=== PATIENT | female | born 1945 | race Hispanic/Latino ===

== ENCOUNTER 2017-03-02 08:47 | Emergency (ER) | payer MEDICARE ==
[2017-03-02] MEDS ORDERED: NACL 0.9% 500 ML 500 ML IV ONE (08:49)
--- NOTE | 2017-03-02 09:13 | XRay Report ---
PORTABLE CHEST INDICATION: Possible sepsis. COMPARISON: None similar. FINDINGS: Portable, frontal chest radiograph demonstrates normal cardiomediastinal silhouette. Subtle nonspecific 4.5 cm haziness overlies the left mid to lower lung peripherally. Clear remainder lungs without pleural effusions or CHF. Aortic knob calcifications. EKG leads. Demineralized bones with few degenerative changes and lower thoracic-lumbar incompletely imaged Fink rods. CONCLUSION: 1. Subtle left mid to lower lung hazy opacity/pneumonia, as described. PA and lateral chest radiographs and/or chest CT with contrast may be considered for further evaluation, as appropriate. 2. Other findings, as above. Thank you for the opportunity to participate in this patient's care.
[2017-03-02] MEDS ORDERED: TYLENOL PR ONE ×2 (09:14)
[2017-03-02 09:24] LABS: Hematocrit 50.6 % (30.3-42.9); Mean Corpuscular HGB Conc 32 % (30-34); Mean Corpuscular Hemoglobin 32 pg (28-32); Mean Corpuscular Volume 101 fl (79-97); Platelet Count 209 K/mm3 (140-440); Red Blood Count 5.03 M/mm3 (3.65-5.03); Red Cell Distribution Width 15.9 % (13.2-15.2)
[2017-03-02 09:28] LABS: White Blood Count 36.1 K/mm3 (4.5-11.0)
[2017-03-02] MEDS ORDERED: LEVOPHED DRIP 4 MG/NS 250 ML 4 MG/250 ML BAG IV ONE (09:41)
[2017-03-02 09:43] LABS: Albumin 3.5 g/dL (3.9-5); Albumin/Globulin Ratio 0.8 %; Bilirubin,Total 0.7 mg/dL (0.1-1.2); Calcium 9.8 mg/dL (8.4-10.2); Chloride 98.6 mmol/L (98-107); Potassium 5.1 mmol/L (3.6-5.0); Total Protein 7.7 g/dL (6.3-8.2)
[2017-03-02] MEDS ORDERED: KETALAR ONE (09:56)
[2017-03-02] MEDS ORDERED: ZEMURON IV ONE (09:56)
[2017-03-02] MEDS ORDERED: SODIUM BICARBONATE IV ONE (10:00)
[2017-03-02] MEDS ORDERED: ADRENALIN ONE (10:00)
[2017-03-02] MEDS ORDERED: NACL 0.9% 1000 ML 1,000 ML IV ONE ×2 (10:00→10:14)
[2017-03-02] MEDS ORDERED: LEVAQUIN 750MG/150ML 750 MG/150 ML BAG IV ONE (10:00)
[2017-03-02 10:08] LABS: INR 1.48 (0.87-1.13)
[2017-03-02] MEDS ORDERED: LEVOPHED DRIP 4 MG/NS 250 ML 4 MG/250 ML BAG IV SCH (10:30)
--- NOTE | 2017-03-02 10:53 | Emergency Department Report ---
HPI - General Chief Complaint: Altered Mental Status Time Seen by Provider: 03/02/17 08:53 - HPI HPI: This is a 71-year-old female who presents to the emergency department via EMS from her retirement with reports of altered mental status and fever. She has a history of asthma, CVA, hypertension, dementia, left-sided hemiplegia. It is unknown what her normal baseline mental status is the patient is currently nonverbal and mostly unresponsive. She presents febrile, mottled and appears short of breath. She is a poor story and secondary to her current medical condition and acuity. It is unknown whether or not the patient received anything for her symptoms prior to presentation. ED Past Medical Hx - Past Medical History Previous Medical History?: Yes Hx Hypertension: Yes Hx CVA: Yes Hx Seizures: Yes Hx Psychiatric Treatment: Yes (dementia with psychosis) Hx Asthma: Yes Additional medical history: hemiplegia left side with hemiparesis, insomnia, acute respiratory failure, restless legs syndrome, apraxia, pneumonia, pressure ulcer - Surgical History Additional Surgical History: unknown - Social History Smoking Status: Unknown if ever smoked Substance Use Type: None ED Review of Systems ROS: Stated complaint: UNRESPONSIVE Other details as noted in HPI Comment: Unobtainable due to pts medical conditions Physical Exam - Physical Exam Vital Signs: Vital Signs 03/02/17 03/02/17 08:50 08:54 Temperature 104.6 F H Pulse Rate 111 H Respiratory 38 H Rate Blood Pressure 98/73 [Right] Physical Exam: GENERAL: The patient is ill-appearing. She appears to have some chronic contractures with some new onset respiratory distress. HENT: Normocephalic. Atraumatic. Patient has moist mucous membranes. EYES: Her eyes are spontaneously open but she is just staring straight ahead with minimal blinking. Pupils are reactive but sluggish. NECK: Supple. Trachea is midline. CHEST/LUNGS: Clear to auscultation. There is moderate to severe tachypnea with some super clavicular accessory muscle use. There is respiratory distress noted. HEART/CARDIOVASCULAR: Regular. There is mild tachycardia. There is no gallop rub or murmur. ABDOMEN: Abdomen is soft, nontender. Patient has normal bowel sounds. There is no abdominal distention. SKIN: Skin appears slightly mottled. The torso and abdomen feel warm/hot to touch, while the extremities feel cool. NEURO: The patient appears awake as her eyes are open spontaneously but she has otherwise not following any commands. MUSCULOSKELETAL: Patient has bilateral lower extremity and left upper extremity contractures. Palpable radial pulse. ED Course Vital Signs 03/02/17 03/02/17 08:50 08:54 Temperature 104.6 F H Pulse Rate 111 H Respiratory 38 H Rate Blood Pressure 98/73 [Right] - Central Line Placement Right Femoral Consent Obtained: emergent situation Time Out Performed: Yes Patient Placed on Monitor/Pulse Ox: Yes MD Prep: mask, gown, gloves Central Line Prep: Chlorhexidine scrub Ultrasound Used for Placement: Yes Central Line Lumen Inserted: triple Bloods Obtained for Lab: Yes Central Line Position: good blood return, all ports aspirated, flus, sutured in place with nyl Dressing Applied: Tegaderm, sterile gauze/tape Post Procedure X-Ray: tip of catheter in good p Patient Tolerated Procedure: well Complications: none - Intubation Time Out Performed: Yes Sedative: Ketamine Mg Given: 50 Paralytic: Rocuronium Mg Given: 70 Laryngoscope: other (glydescope) Size: 3 ET Tube Size: 7.5 Tube Secured Depth (cm): 23 Tube Secured Location: lips Tube Placement Confirmation: visualized tube passing t, equal breath sounds bilat, no breath sounds over epi, confirmation by capnometr Patient Tolerated Procedure: well Intubation Complications: none ED Medical Decision Making - Lab Data Result diagrams: 03/02/17 08:55 03/02/17 08:55 - Radiology Data Radiology results: report reviewed PORTABLE CHEST INDICATION: Possible sepsis. COMPARISON: None similar. FINDINGS: Portable, frontal chest radiograph demonstrates normal cardiomediastinal silhouette. Subtle nonspecific 4.5 cm haziness overlies the left mid to lower lung peripherally. Clear remainder lungs without pleural effusions or CHF. Aortic knob calcifications. EKG leads. Demineralized bones with few degenerative changes and lower thoracic-lumbar incompletely imaged Fink rods. CONCLUSION: 1. Subtle left mid to lower lung hazy opacity/pneumonia, as described. PA and lateral chest radiographs and/or chest CT with contrast may be considered for further evaluation, as appropriate. 2. Other findings, as above. Thank you for the opportunity to participate in this patient's care. Transcribed By: RS Dictated By: SCOTT BUTCHER MD Electronically Authenticated By: SCOTT BUTCHER MD Signed Date/Time: 03/02/17 0908 - Medical Decision Making This patient arrived with the report that she had altered mental status and fever. She was very ill-appearing with some tachycardia, severe tachypnea with accessory muscle use. It was hard to get an accurate blood pressure on this patient as she is contracted to the left upper extremity. A peripheral IV was placed by myself in the right upper extremity as we did not have any access. Her blood pressure appeared to go up and down from a systolic of 90 to a systolic of 150 and then back down. Shortly after arrival it appeared that the patient was having some hypotension as she did not have a discernible blood pressure. The patient needed to be intubated but without a reliable blood pressure it was hard to decide on which medications to give 4 any necessary sedation and/or paralysis. The patient was septic and concern for hypotension and therefore septic shock, a right femoral central line was placed by myself. As soon as the central line was in place, the patient was intubated. Neither of these procedures appear to show any obvious complications. However shortly afterwards, the patient appeared to have bradycardia and then appeared to go pulseless. This was around 10 AM. ACLS protocol was started including chest compressions, epinephrine. The patient appeared to be in PEA. We did multiple rounds of ACLS. About 8 minutes into it the patient appeared to go into V. tach and she was given a 200 J shock with a return to a more normal appearing rhythm. A few minutes after that we had return of spontaneous circulation. Levothroid was started. Patient began having a tachyarrhythmia once again appeared to be V. tach except for she still had a weekend or thready pulse. She was given a 360 J defibrillation that put it back into a more normal appearing rhythm but the patient appeared to once again is her pulse and therefore was in PEA. Over the next 15 or so minutes we continued with ACLS protocol including epinephrine, sodium bicarbonate, chest compressions. Intermittently I would look with the ultrasound and at first the heart appeared to have some type of contractility but despite the ACLS protocol efforts, eventually the heart appeared to slow down and/or become fatigued and stop showing any significant contractility, squeeze or even significant fibrillation. At this point, secondary to medical futility, time of was called at 10:31 AM. It should be noted that the patient came in with a white blood cell count of 36, 000 and had a lactic acid level drawn upon arrival that resulted as 14. Her venous pH was 7.1. She also had renal failure which is unknown whether it is acute or chronic with a creatinine of 4.6. - Differential Diagnosis sepsis, septic shock, CVA, UTI Critical Care Time: Yes Critical care time in (mins) excluding proc time.: 50 Critical care attestation.: If time is entered above; I have spent that time in minutes in the direct care of this critically ill patient, excluding procedure time. Critical care time was spent on this patient during her initial evaluation, multiple re-evaluations , ordering and interpretation of labs, ordering of imaging, supervision of ACLS protocol. This does not include the time spent doing the intubation and central venous catheter procedures. Critical Care Time: 50 mins ED Disposition Clinical Impression: Septic shock, Lactic acidosis Altered mental status Qualifiers: Altered mental status type: unspecified Qualified Code(s): R41.82 - Altered mental status, unspecified Respiratory failure Qualifiers: Chronicity: acute Respiratory failure complication: unspecified whether with hypoxia or hypercapnia Qualified Code(s): J96.00 - Acute respiratory failure, unspecified whether with hypoxia or hypercapnia Disposition: DC-20 Is pt being admited?: No Referrals: SCARLET FLORES MD [Primary Care Provider] - 3-5 Days Time of Disposition: 12:05
[2017-03-02 10:57] LABS: Anisocytosis 1+; Basophils % (Manual) 0 % (0.0-1.8); Blastocytes % (Manual) 0 %; Diff Status Complete; Eosinophils % (Manual) 0 % (0.0-4.3); Total Cells Counted Percent 0
[2017-03-02 11:05] VITALS: BP 74/15
== END 2017-03-02 14:36 ==
LOC: ED 08:47
DX: J96.00 Acute respiratory failure, unspecified whether with hypoxia or hypercapnia (principal); A41.9 Sepsis, unspecified organism; R65.21 Severe sepsis with septic shock; E87.2 Acidosis; R41.82 Altered mental status, unspecified; I10 Essential (primary) hypertension; J45.909 Unspecified asthma, uncomplicated
CPT/HCPCS: 31500; 36415; 36556; 51702; 71010; 80053; 82140; 82805; 85007; 85025; 85610; 87040; 92950; 96365; 96375; 99291; J0171; J1956; J7030; J7040